=== PATIENT | male | born 1950 | race Caucasian/White ===

== ENCOUNTER → 2019-02-11 17:09 | Outpatient (CLI) | payer MEDICARE, OTHER, SELFPAY | PROVIDERS: Family Provider Family Medicine; PCP Family Medicine; Referring Provider Urology; Visit Provider Urology | DX: N39.0 Urinary tract infection, site not specified (principal) | CPT/HCPCS: 87077; 87086; 87088; 87186 ==

== ENCOUNTER → 2020-03-29 | Outpatient (CLI) | payer MEDICARE, OTHER, SELFPAY | END | disposition home or self-care (01) | LOC: LABSPEC 16:53 | PROVIDERS: PCP Family Medicine; Referring Provider Urology; Visit Provider Urology | DX: R82.998 Other abnormal findings in urine (principal) | CPT/HCPCS: 87077; 87086; 87088 ==

== ENCOUNTER 2020-07-12 10:09 | Day surgery (SDC) | payer MEDICARE, OTHER, SELFPAY ==
[2020-07-12] VITALS (7 sets, daily range): BP systolic 143–150; BP diastolic 63–93; PULSE 73–77; RESP 16–18; TEMP 36.2–36.7; O2SAT 95–99; BMI 37.8
--- NOTE | 2020-07-12 08:00 | HP_ITS ---
Chief Complaint: Pain in neck,memo shoulders,arms,low back,memo hips/buttocks,memo legs History of Present Illness: This is a 69 Y/O male who was seen and evaluated at our office today as a new consult. He was referred to us by Dr. Misty Maldonado. He has been having low back pain nd neck pain for years, he stated he did have an MRI of his lumbar spine, he stated his lower back pain is what needed to be address first, he stated for the past 3 years, he stated it has been getting worse, he stated he has been using a walker due to pain and numbness and tingling on her legs, he denies any bowel or bladder problems, he stated he did not do PT, he admits to achiness on both legs as well as weakness, he has tried OTC medications and it did help some, he stated when he sits his pain is better but when he walks he justus his pain is worse, he denies any other associated symptoms. Pain: neck,memo shoulders,arms,lower back,memo hips/buttocks and memo legs Quality: constant but varies in intensity Region: neck (centered),memo shoulders, low back into the hips and buttocks and pain in memo thighs w/weakness in the legs.Reports neuropathy. Severity: sharp/stabbing, cramping,tingling,weakness Timin Aggravated by: stairs,bending,reaching Relieved by: sitting Pain score (out of 10): 5/10 w/activity Other info: Patient is here for neck, low back, and bilateral leg pain. Has had x-rays and mri's.Pain in neck into the shoulders and has weakness in bilateral arms.Pain in the lower back radiates across and into the hips buttocks,down the bilateral upper thighs and has weakness in the legs.Reports his pain is constant and varies in intensity with activity and does get relief when sitting.States he is currently off the coumadin as he had Urolift surgery done last week and had his catheter removed this AM.States he is taking pyridine but isnt sure for how long. Review of Systems: notes: skin problem, slow healing, vision, problem, blurred vision, cataract, hearing loss, irregular heart beat, constipation, diarrhea, frequent urination, loss of libido, diabetes, easy bleeding, arthritis, lower back injury, anxiety, dripping after urination, prostate problems. Patient denies any fever, chills, headache, change in weight without trying, vision or hearing problems. No cp, sob, octton, pnd, orthopnea, or peripheral edema.They note no lumps or swollen glands, no new rashes, changing moles, or change in bowel function but had bladder issues and had a uro lift done last week.Mood has been fluctuating. Past Medical History: h/o A-fib h/o hypertension h/o Type II Diabetes h/o thyroid disorder h/o basal cell skin cancer-nose/back h/o squamous cell skin cancer-lt pentecostalism h/o obstructive sleep apnea h/o neuropathy h/o cataracts h/o anxiety s/p tonsillectomy s/p left carpal tunnel release 2016 s/p left heel spur removed 1980 s/p uro lift 04/2020 Family History: ======== Structured Family History ======== Mother: Heart attack, Stroke, Glaucoma, Diabetes mellitus Father: Angina, Heart disease Social History: [Tobacco: Former smoker (0 pk yrs / 0 yrs quit) Start Date: 05/21/2020 End Date: 05/21/2020 Pipe Smoker: No Cigar Smoker: No Chewing Tobacco User: No Electronic Cigarette User: No] Living situation: Occupation: Self employed Tobacco: Former-quit 1970 EtOH: Occasional Rec. drugs: Denies Allergies: Adhesive Tape Medications: 1) Aspirin Low Strength 81 mg oral delayed release tablet, Take 1 tablet by mouth once daily 2) Clobetasol Propionate External Cream, as directed prn 3) Coumadin 5 mg oral tablet, Take 1 tablet by mouth 5 days per week 4) Coumadin 7.5 mg oral tablet, 1 tab po two days per week 5) Flax Seed Oil oral capsule, Take 1 tablet by mouth 2 times a Day 6) furosemide 40 mg oral tablet, Take 1 tablet by mouth once daily 7) gabapentin 400 mg oral capsule, Take 1 tablet by mouth once daily 8) ipratropium 42 mcg/inh (0.06%) nasal spray, as directed 9) Januvia 100 mg oral tablet, Take 1 tablet by mouth once daily 10) levothyroxine 50 mcg (0.05 mg) oral tablet, Take 1 tablet by mouth once daily 11) loratadine 10 mg oral tablet, Take 1 tablet by mouth once daily 12) meloxicam 15 mg oral tablet, Take 1 tablet by mouth once daily 13) metFORMIN 500 mg oral tablet, Take 2 tablet by mouth 2 times a Day 14) NexIUM 20 mg oral delayed release capsule, Take 1 tablet by mouth once daily 15) nystatin 100,000 units/g topical powder, as directed prn 16) pioglitazone 45 mg oral tablet, Take 1 tablet by mouth once daily 17) tamsulosin 0.4 mg oral capsule, Take 1 tablet by mouth once daily 18) Tylenol Extra Strength 500 mg oral tablet, as directed prn 19) Vitamin B12 2500 mcg sublingual tablet, Take 1 tablet by mouth once daily 20) Vitamin B6 100 mg oral tablet, Take 1 tablet by mouth once daily Physical Examination: Well nourished and well developed in no acute distress. Affect is normal and appropriate. Mucosa pink and moist. Chest is unlabored breathing, pt is alert and oriented to place, person and time. Neck is supple without significant lymphadenopathy or thyromegaly. Abdomen soft & non-tender. No HSM or masses appreciated. Extremities show no cyanosis, clubbing, or edema. Musculoskeletal exam: pt is ambulating to and from the examination room with an antalgic gait without any assistance of any devices, pt was able to ambulate on his heels and tip toes without difficulty, ROM of the lumbar spine is limited to 75 degrees flexion and <10 degrees extension, lateral rotation with pain , positive spurling's test at the distribution of L4 on the left, on inspection of the lower back there is no surgical scar, alignment of the spine is normal. on superficial and deep palpation there is tenderness at the bilateral paraspinal muscle with muscle spasms, there is no step off on the spinous process. There is tenderness and positive facet loading bilaterally worse on the left, negative SI joint tenderness , SLR test is positive at 45 degrees on the right and positive 30 degrees on the left, GIL test is negative on the right and positive on the left, motor function is 4+/5 on the right muscles and 4+/5 on the left muscles, sensory exam intact to light touch on the right and the left, reflexes are symmetrical bilateral and 1+ on the right knee jerk and Achilles and 1+ on the left knee jerk and Achilles, Cervical paraspinal muscle tenderness, Cervical ROM is limited due to pain, Bilateral cervical facet loading is positive. Assessment & Plan: # Degeneration of lumbosacral intervertebral disc (M51.37): # Lumbosacral radiculopathy (M54.17): # Lumbosacral spondylosis (M47.817): # Lumbosacral stenosis (M48.07): # Spondylolisthesis, lumbar region (M43.16): # Arthropathy of lumbar facet (M46.96): # Taking multiple medications for chronic disease (Z79.899): Continue with his medications. Follow up with his urologist and his PCP. OARRS was reviewed today. UDS was performed today and will be reviewed on the next encounter to monitor pt medications compliance. SOAPP score is 3 MRI of the lumbar spine was reviewed with the pt today and they appear to understand. Life style modifications were also discussed today and the pt appears to understand. PEG was reviewed today. Pt was advised not to consume alcohol with his medications due to possible severe interaction, pt appears to understand. The pt has been counseled on safe storage and disposal of opioids. Pt was advised not to consume alcohol with his medications due to possible severe interaction, pt appears to understand. The pt has been counseled on safe storage and disposal of opioids. Weight loss was recommended today through diet and exercise. Reviewed with the pt today our opioid agreement and they appear to understand. There are no signs of diversion or addiction with the pt, there is also no signs of abuse or misuse, continues to do well with their medications without any side effects, we will continue monitoring the pt closely. pt has tried multiple modalities in the past with little or no success, we will schedule the pt for a diagnostic/ therapeutic caudal epidural steroid injection. Risks and benefits of the above meds were discussed with the pt and they appear to understand. The common side effects of the medications were discussed and all of their questions and concerns were answered and they appear to understand Discussed natural and expected course of this diagnosis and need to alert me if symptoms do not follow expected course, or if any worse. Pt is to continue with his PT and HEP. We have discussed the risks, benefits as well as alternatives of the procedure and the patient appears to understand and would like to proceed with the above plan. Pt was advised to stop their Coumadin for 5 days prior to their injection after discussing it with their PCP, pt verbalized understanding. The above plan was discussed today with the pt in details and they appear to understand and agrees to continue with the plan.
[2020-07-12 10:36] LABS: Prothrombin Time Fingerstick 15.7 SEC (11.9-14.4)
[2020-07-12] MEDS: Lactated Ringers 1,000 ML 100 ML IV (10:53)
[2020-07-12 11:00] LABS: Bedside Glucose 133 mg/dL (70-110)
--- NOTE | 2020-07-12 11:10 | RAD_ITS ---
PROCEDURE: Caudal block DATE OF EXAMINATION: 07/12/2020 INDICATION: Male, 69 years old. Pelvic pain PHYSICIAN: Dr. Montano FLUOROSCOPY TIME (if supplied): (8) seconds RADIATION DOSAGE (If Supplied By Facility): CTDIvol = ( ) mGy, DLP = ( ) mGycm CONSENT: The risks, benefits and alternatives to the procedure were explained to the patient, and the patient agreed to the procedure and signed the consent. SEDATION: Local STERILE BARRIER TECHNIQUE: The following sterile barrier precautions were used during the procedure: hand hygiene; use of 2% chlorhexidine aseptic; use of a cap, mask, sterile gown, sterile gloves, sterile full body drape, and a large sterile sheet. PROCEDURE/TECHNIQUE: (All elements of maximal sterile barrier technique followed, including US elements as applicable) The risks, benefits, and alternatives to the procedure were explained to patient, and the patient agreed to the procedure and signed a consent form for the procedure. A timeout was performed to confirm the patient''s identity, the type of procedure, to be performed and the site of entry. 2 Limited intraoperative films were performed as the patient has undergone caudal block by Dr. Montano. RAD/Fluor Guidance for Spine Inj IMPRESSION: Caudal block Electronically Signed: Sánchez Gooden MD at 15:26 EDT , Service support ,
[2020-07-12] MEDS: 0.9% Normal Saline (Pres. free 10 ML Vial (11:16)
[2020-07-12] MEDS: Bupivacaine 0.25% 30 ML Vial (11:16)
[2020-07-12] MEDS: MethylPREDNISolone Acetate 80 MG/ML Vial (11:16)
--- NOTE | 2020-07-12 11:18 | PCM.OPRPT ---
Report of Operation Date of Procedure: 07/12/20 Description of Surgical Findings:: PREOPERATIVE DIAGNOSIS: Lumbosacral radiculopathy, lumbosacral degenerative disc disease, lumbosacral spinal stenosis POSTOPERATIVE DIAGNOSIS: Lumbosacral radiculopathy, lumbosacral degenerative disc disease, lumbosacral spinal stenosis PROCEDURE PERFORMED: Diagnostic/therapeutic caudal epidural steroid injection. ANESTHESIA: MAC. BLOOD LOSS: Minimal. COMPLICATIONS: None. DESCRIPTION OF PROCEDURE: History and physical of today was reviewed. Risks and benefits of the procedure were explained. The patient understood and agreed to proceed. Informed consent was obtained. IV inserted per routine protocol. The patient was taken to the operating room and placed in the prone position with a pillow positioned underneath the abdomen. The lower back and tailbone area was prepped and draped in a sterile fashion using iodine x3. Under fluoroscopy guidance on a lateral view, the caudal space was identified. The skin and subcutaneous tissue was anesthetized with approximately 3 mL of 1% lidocaine using a 25-gauge regular needle. Under direct visualization with fluoroscopy, using a 22-gauge 3-1/2-inch spinal needle, the needle was advanced via the skin through the sacral hiatus. The tip of the needle was passed through the sacrococcygeal ligament and advanced to approximately S4 area. After negative aspiration of blood or CSF, a total of 3 mL of contrast was injected to confirm correct placement of the needle as well as cephalad spread. The spread was followed to approximately L5 area. After confirmation on AP as well as lateral view and repeated negative aspiration, a total of 15 mL of preservative-free 0.125% Marcaine with 80 mg of Depo-Medrol was injected easily. The needle was then removed intact. The patient experienced no sign or symptoms of intrathecal or intravascular injection. The patient experienced no paresthesia. The procedure was completed without any apparent difficulty or any complications. The patient appeared to tolerate it well. ASSESSMENT AND PLAN: This is a 69-year-old male with lumbosacral radiculopathy, lumbosacral degenerative disc disease, lumbosacral spinal stenosis status post diagnostic/therapeutic caudal epidural steroid injection.patient will continue his current medications patient will follow in approximately 2 weeks for reevaluation.
== END 2020-07-12 12:11 | disposition home or self-care (01) ==
LOC: SDC 10:13 → AC 10:16
PROVIDERS: PCP Family Medicine; Referring Provider Anesthesiology Pain Medicine; Visit Provider Anesthesiology Pain Medicine
PROC: 3E0S3BZ Introduction of Anesthetic Agent into Epidural Space, Percutaneous Approach (ICD-10-PCS; CPT 62282; principal; 2020-07-12 11:35)
DX: M51.17 Intervertebral disc disorders with radiculopathy, lumbosacral region (principal); M47.27 Other spondylosis with radiculopathy, lumbosacral region; M48.07 Spinal stenosis, lumbosacral region; M43.16 Spondylolisthesis, lumbar region; M46.96 Unspecified inflammatory spondylopathy, lumbar region; I48.91 Unspecified atrial fibrillation; E11.40 Type 2 diabetes mellitus with diabetic neuropathy, unspecified; I10 Essential (primary) hypertension; E06.9 Thyroiditis, unspecified; E78.00 Pure hypercholesterolemia, unspecified; G47.33 Obstructive sleep apnea (adult) (pediatric); F41.9 Anxiety disorder, unspecified; Z87.891 Personal history of nicotine dependence; Z85.828 Personal history of other malignant neoplasm of skin; Z79.01 Long term (current) use of anticoagulants; Z79.82 Long term (current) use of aspirin; Z79.84 Long term (current) use of oral hypoglycemic drugs; Z79.1 Long term (current) use of non-steroidal anti-inflammatories (NSAID); Z79.899 Other long term (current) drug therapy
CPT/HCPCS: 62323; 36416; 64483; 77003; 82962; 85610; J7120; J3490

== ENCOUNTER 2020-08-30 09:05 | Day surgery (SDC) | payer MEDICARE, OTHER, SELFPAY ==
[2020-07-12 10:31] VITALS: BMI 37.8
[2020-08-30] VITALS (7 sets, daily range): BP systolic 100–113; BP diastolic 52–65; PULSE 65–74; RESP 16–18; TEMP 36.4–37.1; O2SAT 98–100; BMI 38.1
[2020-08-30 09:36] LABS: Bedside Glucose 99 mg/dL (70-110)
[2020-08-30 09:40] LABS: Prothrombin Time Fingerstick 15.7 SEC (11.9-14.4)
[2020-08-30] MEDS: Lactated Ringers 1,000 ML 100 ML IV (09:42)
--- NOTE | 2020-08-30 09:58 | RAD_ITS ---
STUDY: X-RAY - LUMBAR SPINE REASON FOR EXAM: Male, 69 years old. RIGHT FACET INJECTION L4-S1 -- 3 FLUORO IMAGES, 13 FLUORO SEC, 17.89mGy TOTAL TECHNIQUE: 6 C-arm view(s) of the lumbar spine were obtained. COMPARISON: None FINDINGS: Multiple limited [id number] C-arm images show needles positioned at multiple right and left lower lumbar spine facet joints. Correlate with procedure note. Electronically Signed: Joe Everett MD at 13:04 EDT , Service support , RAD/Lumbar Spine 2 or 3 Views
--- NOTE | 2020-08-30 09:58 | RAD_ITS ---
STUDY: X-RAY - LUMBAR SPINE REASON FOR EXAM: Male, 69 years old. LEFT FACET INJECTION L4-S1 -- 14 FLUORO SEC, 3 FLUORO IMAGES TECHNIQUE: 3 Limited bysod-gm-endm C-arm view(s) of the lumbar spine were obtained. COMPARISON: None FINDINGS: 3 C-arm images show needles positioned in the left L4-L5, and L5-S1 facet joints. Correlate with procedure note. Electronically Signed: Joe Everett MD at 12:48 EDT , Service support , RAD/Lumbar Spine 2 or 3 Views
[2020-08-30] MEDS: Bupivacaine 0.25% 30 ML Vial (10:09)
[2020-08-30] MEDS: MethylPREDNISolone Acetate 80 MG/ML Vial (10:09)
--- NOTE | 2020-08-30 17:01 | PCM.OPRPT ---
Report of Operation Date of Procedure: 08/30/20 Description of Surgical Findings:: PROCEDURE PERFORMED: Bilateral lumbar facet steroid injection, L4, L5, and S1. Preoperative diagnosis: Lumbosacral spondylosis, lumbosacral degenerative disc disease, lumbar facet arthropathy Postoperative diagnosis: Lumbosacral spondylosis, lumbosacral degenerative disc disease, lumbar facet arthropathy ANESTHESIA: MAC. BLOOD LOSS: Minimal. COMPLICATIONS: None. DESCRIPTION OF PROCEDURE: History and physical of today was reviewed. Risks and benefits of the procedure were explained. The patient understood and agreed to proceed. Informed consent was obtained. IV inserted per routine protocol. The patient was taken to the operating room and placed in the prone position with a pillow positioned underneath the abdomen. The lower back area was prepped and draped in a sterile fashion using iodine x3. Under fluoroscopy guidance on AP view, the L4 through S1 vertebral bodies were visualized. The skin and subcutaneous tissue was anesthetized with approximately 5 mL of 1% lidocaine using a 25-gauge regular needle. Under direct visualization with fluoroscopy, at approximately 25-degree angle, starting on the left L4, ending on the right L4, passing through the L5 and S1 bilaterally, using a 22-gauge 3-1/2-inch spinal needle, the needle was advanced via the skin. The tip of the needle was maneuvered and directed towards the superior medial gutter of the transverse process at the vicinity of the medial branch. Once tip of the needle was in contact with the bone, the needle was pulled approximately 2 mm off the bone. After negative aspiration for blood or CSF and confirmation on AP, oblique as well as lateral view, a total of 12 mL of preservative-free 0.25% Marcaine with 80 mg of Depo-Medrol was injected in divided doses between those six levels. The needles were then removed intact. The patient experienced no sign or symptoms of intrathecal or intravascular injection. The patient experienced no paresthesia. The procedure was completed without any apparent difficulty or any complications. The patient appeared to tolerate it well. ASSESSMENT AND PLAN: This is a 69-year-old male with lumbosacral spondylosis lumbosacral degenerative disc disease, lumbar facet arthropathy status post bilateral lumbar facet steroid injection L4-S1 patient will continue his current medications patient will follow approximately 2 weeks for reevaluation.
== END 2020-08-30 11:00 | disposition home or self-care (01) ==
LOC: SDC 09:06 → AC 09:08
PROVIDERS: PCP Family Medicine; Referring Provider Anesthesiology Pain Medicine; Visit Provider Anesthesiology Pain Medicine
PROC: 3E0T3BZ Introduction of Anesthetic Agent into Peripheral Nerves and Plexi, Percutaneous Approach (ICD-10-PCS; CPT 64493; principal; 2020-08-30 10:35)
DX: M47.817 Spondylosis without myelopathy or radiculopathy, lumbosacral region (principal); M51.37 Other intervertebral disc degeneration, lumbosacral region; M48.07 Spinal stenosis, lumbosacral region; I48.91 Unspecified atrial fibrillation; E11.40 Type 2 diabetes mellitus with diabetic neuropathy, unspecified; I10 Essential (primary) hypertension; E78.00 Pure hypercholesterolemia, unspecified; E07.9 Disorder of thyroid, unspecified; G47.33 Obstructive sleep apnea (adult) (pediatric); F41.9 Anxiety disorder, unspecified; Z79.899 Other long term (current) drug therapy; Z79.01 Long term (current) use of anticoagulants; Z79.84 Long term (current) use of oral hypoglycemic drugs; Z79.82 Long term (current) use of aspirin; Z87.891 Personal history of nicotine dependence; Z85.828 Personal history of other malignant neoplasm of skin
CPT/HCPCS: 01992; 64493; 64494; 64495; 36416; 64483; 72100; 82962; 85610; J7120

== ENCOUNTER 2020-09-27 07:59 | Day surgery (SDC) | payer MEDICARE, OTHER, SELFPAY ==
[2020-08-30 09:35] VITALS: BMI 38.1
[2020-09-27 08:24] VITALS: BP 132/61; PULSE 82; RESP 16; TEMP 36.1; O2SAT 98; BMI 38.1
[2020-09-27 08:45] LABS: Bedside Glucose 122 mg/dL (70-110)
[2020-09-27 08:56] LABS: Prothrombin Time Fingerstick 16.5 SEC (11.9-14.4)
[2020-09-27] MEDS: MethylPREDNISolone Acetate 40 MG/ML Vial IM (09:36)
[2020-09-27] MEDS: Bupivacaine 0.25% 30 ML Vial (09:36)
--- NOTE | 2020-09-27 09:40 | RAD_ITS ---
PROCEDURE: Caudal block. DATE OF EXAMINATION: 09/27/2020. INDICATION: Male, 69 years old. Chronic low back pain. FLUOROSCOPY TIME (if supplied): (6 seconds) minutes/seconds. 3 images were obtained. Intraoperative imaging provided for caudal block.. RAD/Fluor Guidance for Spine Inj IMPRESSION: Intraoperative imaging provided for caudal block. Electronically Signed: Ramos Griffin, at 12:48 EST , Service support ,
[2020-09-27 09:50] VITALS: BP 132/61; BP 142/83; PULSE 85; RESP 16; TEMP 36.4; O2SAT 97
[2020-09-27 09:55] VITALS: BP 132/61; BP 151/76; PULSE 81; RESP 16; O2SAT 98
[2020-09-27 10:00] VITALS: BP 132/61; BP 174/78; PULSE 86; RESP 16; O2SAT 99
[2020-09-27 10:05] VITALS: BP 132/61; BP 158/77; PULSE 82; RESP 16; TEMP 36.4; O2SAT 98
[2020-09-27 10:22] VITALS: BP 132/61
--- NOTE | 2020-09-27 15:03 | PCM.OPRPT ---
Report of Operation Date of Procedure: 09/27/20 Description of Surgical Findings:: PREOPERATIVE DIAGNOSIS: Lumbosacral radiculopathy, lumbosacral degenerative disc disease, lumbosacral spinal stenosis POSTOPERATIVE DIAGNOSIS: Lumbosacral radiculopathy, lumbosacral degenerative disc disease, lumbosacral spinal stenosis PROCEDURE PERFORMED: Diagnostic/therapeutic caudal epidural steroid injection. ANESTHESIA: MAC. BLOOD LOSS: Minimal. COMPLICATIONS: None. DESCRIPTION OF PROCEDURE: History and physical of today was reviewed. Risks and benefits of the procedure were explained. The patient understood and agreed to proceed. Informed consent was obtained. IV inserted per routine protocol. The patient was taken to the operating room and placed in the prone position with a pillow positioned underneath the abdomen. The lower back and tailbone area was prepped and draped in a sterile fashion using iodine x3. Under fluoroscopy guidance on a lateral view, the caudal space was identified. The skin and subcutaneous tissue was anesthetized with approximately 3 mL of 1% lidocaine using a 25-gauge regular needle. Under direct visualization with fluoroscopy, using a 22-gauge 3-1/2-inch spinal needle, the needle was advanced via the skin through the sacral hiatus. The tip of the needle was passed through the sacrococcygeal ligament and advanced to approximately S4 area. After negative aspiration of blood or CSF, a total of 3 mL of contrast was injected to confirm correct placement of the needle as well as cephalad spread. The spread was followed to approximately L5 area. After confirmation on AP as well as lateral view and repeated negative aspiration, a total of 15 mL of preservative-free 0.125% Marcaine with 80 mg of Depo-Medrol was injected easily. The needle was then removed intact. The patient experienced no sign or symptoms of intrathecal or intravascular injection. The patient experienced no paresthesia. The procedure was completed without any apparent difficulty or any complications. The patient appeared to tolerate it well. ASSESSMENT AND PLAN: This is an 69-year-old male with lumbosacral radiculopathy, lumbosacral degenerative disc disease, lumbosacral spinal stenosis status post diagnostic/therapeutic caudal epidural steroid injection. Patient will continue his current medications, the patient will follow in approximately 2 weeks for reevaluation.
== END 2020-09-27 10:38 | disposition home or self-care (01) ==
LOC: SDC 07:59 → AC 08:38
PROVIDERS: PCP Family Medicine; Referring Provider Anesthesiology Pain Medicine; Visit Provider Anesthesiology Pain Medicine
PROC: 3E0S3BZ Introduction of Anesthetic Agent into Epidural Space, Percutaneous Approach (ICD-10-PCS; CPT 62282; principal; 2020-09-27 09:35)
DX: M51.17 Intervertebral disc disorders with radiculopathy, lumbosacral region (principal); M48.07 Spinal stenosis, lumbosacral region; M47.27 Other spondylosis with radiculopathy, lumbosacral region; I48.91 Unspecified atrial fibrillation; I10 Essential (primary) hypertension; E11.40 Type 2 diabetes mellitus with diabetic neuropathy, unspecified; F41.9 Anxiety disorder, unspecified; Z87.891 Personal history of nicotine dependence; Z79.84 Long term (current) use of oral hypoglycemic drugs; Z79.01 Long term (current) use of anticoagulants; Z79.899 Other long term (current) drug therapy
CPT/HCPCS: 01992; 62323; 64520; 36416; 64483; 77003; 82962; 85610; J7120